=== PATIENT | male | born 1980 | race Caucasian/White ===

== ENCOUNTER → 2020-08-28 | Outpatient (CLI) | payer OTHER, MEDICARE ==
--- NOTE | 2020-09-01 23:20 | ECWPNPC ---
PATIENT NAME: GUERRERO SALINAS JR : 1980 GENDER: MALE VISIT DATE: 08/28/2020 DISCHARGE DATE: 08/28/20 0000 VISIT LOCKED DATE TIME: PHYSICIAN: JOCELINE WINTER RESOURCE: JOCELINE WINTER REASON FOR APPOINTMENT 1. CHRONIC BACK PAIN HISTORY OF PRESENT ILLNESS GENERAL: HERE FOR INITIAL CONSULT OF CHRONIC LOW BACK PAIN.THIS IS A WORK RELATED INJURY WITH INJURY DATE 08/2017.HISTORY OF MULTIPLE LUMBAR SURGERIES WITH LAST SURGERY 02/2018.CONTINUES TO WORK AND REPORTS SEVERE INCREASE IN LOW BACK PAIN AND RIGHT LEG RADICULAR SYMPTOMS AFTER OPERATING A SNOWBLOWER AT WORK.REPORTS TO PARK NATURALIST THAT HE HAS HAD EMERGENCY ROOM VISITS FOR DISABLING PAIN OVER THE PAST FEW MONTHS SINCE LIFTING SNOWBLOWER AT WORK.STATES HE HAS NOT RECIEVED ANY PAIN MEDICATION.REVIEWED ISTOP WHICH IS SHOWING PATIENT IS RECIEVING OXYCODONE 10MG TABLETS AND PICKED UP 90 TABLETS ON 08/08/2020 PRESCRIBED BY PRIMARY CARE,.ISTOP REVEALS THAT HE HAS BEEN RECIEVING THIS EVERY 30 DAYS FOR THE PAST 6 MONTHS.WHEN QUESTIONED ABOUT THIS HE SAID HAS BEEN TAKING THIS 3X A DAY BUT IT DOESNT WORK.HE DID NOT BRING IN MEDICATION TO VISIT BUT STATES HE HAS THIS AT HOME.THERE IS DOCUMENTATION IN MEDICAL HISTORY THAT SHOWS A DISCHARGE FROM FAMILY PRACTICE IN 2010 FOR NONCOMPLIANCE WITH NARCOTIC AGREEMENT.TODAY HE APPEARS VERY UNCOMFORTABLE AND IS FINDING IT VERY DIFFICULT TO WORK BUT HE HAS TO REMAIN WORKING TO SUPPORT HIS FAMILY.HE HAS SEEN HIS SURGEON RECENTLY AND THEY DO NOT RECOMMEND ANOTHER SURGERY.REVIEWED RECENT MRI IMAGING OF LUMBAR SPINE.OFFERED INTERVENTIONAL OPTIONS AND PATIENT STATES HE DOES NOT WANT TO PURSUE INJECTION THERAPY BECAUSE HE HAD THEM IN THE PAST AND THEY DIDNT WORK.DENIES BOWEL OR BLADDER INCONTINENCE.DENIES RECENT ILLNESS OR WEIGHT CHANGES. - - -. FALL RISK SCREENING: SCREENING :TWO OR MORE FALLS WITHOUT INJURY IN THE PAST YEAR PAIN SCREENING: PATIENT HAS A COMPLAINT OF ACUTE OR CHRONIC PAIN :YES LOCATION OF PAIN:LOW BACK, LEG(S) INTENSITY OF PAIN (SCALE OF 1 TO 10):8 WHAT DOES YOUR PAIN FEEL LIKE:ACHING, BURNING, THROBBING, SHOOTING DURATION:CONTINOUS, CONSTANT, ALL DAY PAIN IS INCREASED BY:ACTIVITIES PAIN IS DECREASED BY:USE OF PAIN MEDICATIONS NURSING NOTE: PATIENT WENT TO THE ER FOR BACK PAIN AND WAS COUGHIN UP BLOOD WAS NOT ADMIITED. PAIN CENTER INTAKE QUESTIONS: DO YOU HAVE A HISTORY OF MRSA? :NO DO YOU TAKE A BLOOD THINNERS? :NO DO YOU HAVE ANY BLEEDING DISORDERS? :NO ANY NEW NUMBNESS OR WEAKNESS IN YOUR LEGS OR ARMS? :NO ANY PACEMAKER,DEFIBRILLATOR, OR DORSAL COLUMN STIMULATOR? :NO DO YOU HAVE ANY RASHES OR OPEN SORES? :NO ARE YOU ALLERGIC TO IV DYE? :NO ARE YOU DIABETIC? :NO ANY NEW PROBLEMS WITH YOUR MEDICATIONS? :NO HAVE YOU RECEIVED A VACCINE IN THE PAST 30 DAYS? :NO DO YOU PLAN TO RECEIVE A VACCINE IN THE NEXT 21 DAYS? :NO DO YOU NEED ANY PRESCRIPTION? :NO DO YOU TAKE ANY IMMUNOSUPPRESSIVE MEDICATIONS? :NO CURRENT MEDICATIONS TAKING XANAX 1 MG TABLET 1 TAB(S) ORALLY THREE TIMES DAILY TAKING OXYCODONE HCL 10 MG TABLET 1 ML NEEDED ORALLY EVERY 6 HRS TAKING SIMVASTATIN 20 MG TABLET 1 TABLET IN THE EVENING ORALLY ONCE A DAY TAKING ALBUTEROL 10 MG NOT-TAKING DRISDOL 50,000 UNITS TABLET 1 TAB(S) ORAL WEEKLY NOT-TAKING MORPHINE SULFATE ER 15 MG TABLET EXTENDED RELEASE 12 HOUR 1 TAB(S) ORALLY BID NOT-TAKING PERCOCET 5-325 MG TABLET 1 TABLET NEEDED ORALLY EVERY 6 HOURS ( MDD # 4) NOT-TAKING WELLBUTRIN XL 150 MG TABLET EXTENDED RELEASE 24 HOUR 1 TABLET EVERY MORNING ORALLY ONCE A DAY NOT-TAKING LYRICA 150 MG CAPSULE 1 CAPSULE ORALLY THREE TIMES A DAY NOT-TAKING CELEBREX 200 MG CAPSULE 1 CAPSULE ORALLY TWICE DAILY NOT-TAKING SOMA 350 MG TABLET 1 TABLET ORALLY THREE TIMES A DAY NOT-TAKING DOXEPIN HCL 100 MG CAPSULE 1 CAPSULE AT BEDTIME ORALLY Q MEDICATION LIST REVIEWED AND RECONCILED WITH THE PATIENT PAST MEDICAL HISTORY 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 SURGICAL HISTORY LUMBAR SPINE DISCECTOMY/LAMINECTOMY 2004 LUMBAR SPINE DISCECTOMY/LAMINECTOMY 2004 LUMBAR SPINE DISCECTOMY/LAMINECTOMY 2007 FAMILY HISTORY FATHER: ALIVE, NO KNOWN MEDICAL PROBLEMS MOTHER: , DM-2,CVA SIBLINGS: SEIZURE DISORDER SON(S): ALIVE, NO KNOWN MEDICAL PROBLEMS DAUGHTER(S): ALIVE, NO KNOWN MEDICAL PROBLEMS PATERNAL GRAND FATHER: , COLON CANCER PATERNAL GRAND MOTHER: , DM-2 MATERNAL GRAND MOTHER: , DM-2,CVA 1 SON(S) , 1 DAUGHTER(S) - HEALTHY. SOCIAL HISTORY GENERAL: TOBACCO USE ARE YOU A:CURRENT SMOKER HOW OFTEN DO YOU SMOKE CIGARETTES?EVERY DAY HOW SOON AFTER YOU WAKE UP DO YOU SMOKE YOUR FIRST CIGARETTE?6-30 MIN HOW MANY CIGARETTES A DAY DO YOU SMOKE?31 OR MORE ARE YOU INTERESTED IN QUITTING?NOT READY TO QUIT LATEX QUESTIONNAIRE LATEX ALLERGY : HAVE YOU EVER DEVELOPED ANY TYPE OF REACTION AFTER HANDLING LATEX PRODUCTS SUCH RUBBER GLOVES, CONDOMS, DIAPHRAGMS, BALLOONS, SOCKS, OR UNDERWEAR?NO LATEX ALLERGY : HAVE YOU EVER DEVELOPED ANY TYPE OF REACTION DURING OR AFTER DENTAL APPOINTMENT, VAGINAL/RECTAL EXAMINATION, SURGICAL PROCEDURE, OR ANY OTHER EXPOSURE?NO LATEX RISK : HAVE YOU EVER HAD ANY DIFFICULTY BREATHING OR HIVES AFTER EATING OR HANDLING ANY FRUITS, OR VEGETABLES; SUCH KIWI, BANANAS, STONE FRUITS, OR CHESTNUTSNO LATEX RISK : DO YOU HAVE A PREVIOUS PERSONAL HISTORY OF MORE THAN NINE SURGERIES, SPINA BIFIDA, OR REPEATED CATHERIZATIONS? NO LATEX RISK : ARE YOU FREQUENTLY EXPOSED TO LATEX PRODUCTS IN YOUR OCCUPATION?NO DATE ASKED : 08/28/2020 ALCOHOL USE: YES. RECREATIONAL DRUG USE MARIJUANA (EPISODIC). CAFFEINE 1-2/DAY. YAZIDISM SPIRITISM. EDUCATION GED. LEARNING BARRIERS / SPECIAL NEEDS BARRIERS TO LEARNING?NO HEARING IMPAIRED?NO VISION IMPAIRED?NO COGNITIVELY IMPAIRED?NO READINESS TO LEARN?YES LEARNING PREFERENCES?NO LEARNING CAPABILITIES PRESENT?YES EMOTIONAL BARRIERS?NO SPECIAL DEVICES?NO CREDIT CONTROLLER NEEDED?NO OCCUPATION: DISABLED. DIET: REGULAR DIET. EXERCISE: NO REGULAR EXERCISE. MARITAL STATUS: . HOUSING: RENTS HOUSE. HOSPITALIZATION/MAJOR DIAGNOSTIC PROCEDURE NEW ONSET SEIZURE/OPIOID WITHDRAWAL. 10/2010 REVIEW OF SYSTEMS CONSTITUTIONAL: ANY RECENT FEVER NO . CHILLS NO . WEIGHT CHANGE OF UNKNOWN REASONS NO . GASTROENTEROLOGY: NEW UNEXPLAINABLE CHANGES IN BOWEL CONTROL NO . CONSTIPATION NO . GENITOURINARY: ANY NEW CHANGE IN BLADDER CONTROL? NO . NEUROLOGY: NEW ONSET DIZZINESS OR NEUROLOGICAL CHANGES NOT MENTIONED NO . NEW NUMBNESS OR PAIN PATTERNS NOT MENTIONED AND PERTINENT TO TODAY'S VISIT NO . CARDIOLOGY: NEW CHEST PRESSURE NO . NEW CHEST PAIN NO . RESPIRATORY: UNEXPLAINABLE COUGH NO . NEW SHORTNESS OF BREATH NO . VITAL SIGNS WT 183 LBS, HT 70.5 IN, BMI 25.88 INDEX, BP 146/98 MM HG, HR 108 /MIN, RR 18 /MIN, TEMP 98.4 F, OXYGEN SAT % 100&, SAFE IN ENV? (Y/N) YEST.AMENA KIRBY. EXAMINATION GENERAL EXAMINATION: GENERALAPPEARS UNCOMFORTABLE. PSYCH DEPRESSED AFFECT. FACE:UNREMARKABLE. NECK:NO LYMPHADENOPATHY, SUPPLE. LUNGS:CLEAR TO AUSCULTATION BILATERALLY, NO WHEEZES, RHONCHI, RALES. HEART:NO MURMURS, REGULAR RATE AND RHYTHM. MUSCULOSKELETAL: WEAKNESS NOTED OVER RIGHT LEG.. LUMBAR: PALPATION: + FOR PAIN OVER L/S SPINE. + FOR PAIN OVER L/S PARSPINALS.WELL HEALED SURGICAL SCAR ON L/S AXIS. DIAGNOSTIC TESTS REVIEWED MRI L/S AXIS 2018. ASSESSMENTS POST LAMINECTOMY SYNDROME - M96.1 (PRIMARY) TREATMENT POST LAMINECTOMY SYNDROME NOTES: ADVISED PATIENT THAT WE DON'T HAVE MEDICATION SUGGESTIONS THAT WOULD HELP HIM CONTINUE TO WORK. HE HAS INJURED HIMSELF ON SEVERAL OCCASIONS DUE TO DESIRE TO CONTINUE WORKING. I DON'T FEEL MEDICATION IS THE ANSWER. I'VE DISCUSSED INTERVENTIONAL TREATMENT OPTIONS AND PATIENT DOES NOT WISH TO HAVE ANY INJECTIONS. I FEEL THAT THIS IS THE BEST THAT WE COULD OFFER TO TRY TO HELP HIM. ADVISED PATIENT TO CALL PAIN CLINIC IF HE WANTS TO CONSIDER INJECTION THERAPY TRIALS. PROCEDURES PN WORKMANS' COMP OPINION IN YOUR OPINION, WAS THE INCIDENT THAT THE PATIENT DESCRIBED THE COMPETENT MEDICAL CAUSE OF THIS INJURY/ILLNESS? YES ARE THE PATIENT'S COMPLAINTS CONSISTENT WITH HIS/HER HISTORY OF THE INJURY/ILLNESS? YES IS THE PATIENT'S HISTORY OF THE INJURY/ILLNESS CONSISTENT WITH YOUR OBJECTIVE FINDING? YES WHAT IS THE PERCENTAGE OF TEMPORARY IMPAIRMENT? MODERATE TO MARKED = 66.7% IS THE PATIENT WORKING? YES DOCTOR ON SITE: LOUISA FLOWERS MD PROCEDURE CODES FA211 ESTABILISHED PATIENT [facility] FACILITY CHARGE DISPOSITION & COMMUNICATION FOLLOW UP NO FOLLOW-UP NECESSARY (REASON: WORKMEN'S COMP POSTLAMINECTOMY PAIN SYNDROME) ELECTRONICALLY SIGNED BY JONN FULTON ON 09/01/2020 AT 09:19 AM EST DISCLAIMER : THIS IS A VISIT SUMMARY EXTRACTED FROM THE [employer] CHART. IT IS NOT A COPY OF THE [employer] PROGRESS NOTE. DOMENICO
== END ==
LOC: M PAIN 13:00
PROVIDERS: ATTEND Nurse Practitioner Family
DX: M96.1 Postlaminectomy syndrome, not elsewhere classified (principal); F17.210 Nicotine dependence, cigarettes, uncomplicated; Z79.899 Other long term (current) drug therapy